=== PATIENT | female | born 1935 | race Caucasian/White ===

== ENCOUNTER 2017-05-15 10:14 | Outpatient (CLI) | payer MEDICARE, BC ==
--- NOTE | 2017-05-15 14:27 | RAD ---
RADIOGRAPH CHEST 2 VIEWS: Date: 05/15/17 Time: 1023 hours HISTORY: 81-year-old female with dyspnea. FINDINGS: There is hyperinflation of the lungs, consistent with COPD. The thoracic aorta is tortuous and ectati c. There is no evidence of air space density, pneumothorax, or pulmonary edema. There is no cardiomeg cassie or pleural effusion. Levoscoliosis of lumbar spine and compensatory dextroscoliosis of thoracic s pine. No interval change overall since 10/04/16. IMPRESSION: 1. No acute cardiopulmonary findings. 2. Emphysema. 3. Ectasia of thoracic aorta. 4. S-shaped scoliosis of thoracolumbar spine. ana maría rose POS: [facility]
== END 2017-05-15 10:15 | disposition home or self-care (01) ==
LOC: RAD 10:14
PROVIDERS: ATTEND Internal Medicine Critical Care Medicine
DX: R06.00 Dyspnea, unspecified (principal); J43.9 Emphysema, unspecified; I77.810 Thoracic aortic ectasia; M41.85 Other forms of scoliosis, thoracolumbar region
CPT/HCPCS: 71020

== ENCOUNTER 2017-11-22 13:07 | Outpatient (CLI) | payer MEDICARE, BC ==
--- NOTE | 2017-11-22 14:15 | RAD ---
PA AND LATERAL CHEST XRAY: DATE: 11/22/17. HISTORY: Dyspnea. COMPARISON: 05/15/17. FINDINGS: Cardiac silhouette and pulmonary vasculature are within normal limits. There are interval linear irr egular densities again seen at each lung base unchanged from the prior exam. Peribronchial thickenin g in the right lung base is present. Chest is overall unchanged compared to the prior exam. IMPRESSION: 1. Overall stable chest with mild linear and patchy densities at each lung base which are unchanged. In addition, there is bronchiectasis at the right lung base. Findings may be related to chronic in flammatory or infectious process. 2. No new focal area of consolidation or pleural fluid is seen. POS: [facility]
== END 2017-11-22 13:08 | disposition home or self-care (01) ==
LOC: RAD 13:07
PROVIDERS: ATTEND Internal Medicine Critical Care Medicine
DX: R06.00 Dyspnea, unspecified (principal); J47.9 Bronchiectasis, uncomplicated; J98.4 Other disorders of lung
CPT/HCPCS: 71046

== ENCOUNTER 2020-01-01 10:24 | Outpatient (CLI) | payer MEDICARE, BC ==
--- NOTE | 2020-01-01 11:37 | RAD ---
CHEST 2 VIEWS: Date: 01/01/2020 HISTORY: Dyspnea. COMPARISON: 01/02/2019. FINDINGS: Fairly prominent increased linear and interstitial markings and some reticulonodular parenchymal ellison ges bilaterally, evidence for overall stable chronic lung change. Prominent atherosclerotic ectatic c hanges of the aorta. Heart size is within normal limits. There is some evidence for some possible bro nchiectasis and peribronchial thickening in the bases. IMPRESSION: Fairly extensive but overall stable bilateral chronic lung changes. Extensive atherosclerotic ectatic changes of the aorta. No evidence for significant new process. POS: [facility]
== END 2020-01-01 10:25 | disposition home or self-care (01) ==
LOC: BICRAD 10:24
PROVIDERS: ATTEND Internal Medicine Critical Care Medicine
DX: R06.00 Dyspnea, unspecified (principal); I70.0 Atherosclerosis of aorta; I77.819 Aortic ectasia, unspecified site
CPT/HCPCS: 71046

== ENCOUNTER 2025-04-10 10:03 | Outpatient (CLI) | payer MEDICARE | END 2025-04-10 10:04 | disposition home or self-care (01) | LOC: BICMAMMO 10:03 | PROVIDERS: ATTEND Family Medicine | DX: M81.0 Age-related osteoporosis without current pathological fracture (principal) | CPT/HCPCS: 77080 ==

== ENCOUNTER 2025-04-11 11:08 | Day surgery (SDC) | payer MEDICARE ==
[2025-04-03 10:24] VITALS: BMI 21.6
[2025-04-11] MEDS ORDERED: Tropicamide 1% 15 ML BOTTLE ONE (11:24)
== END 2025-04-11 13:10 | disposition home or self-care (01) ==
LOC: SDC 11:08
PROVIDERS: ATTEND Ophthalmology
PROC: 085K3ZZ Destruction of Left Lens, Percutaneous Approach (ICD-10-PCS; principal; 2025-04-11)
PROC: 085J3ZZ Destruction of Right Lens, Percutaneous Approach (ICD-10-PCS; 2025-04-11)
DX: H26.493 Other secondary cataract, bilateral (principal); Z88.5 Allergy status to narcotic agent; I10 Essential (primary) hypertension; E11.9 Type 2 diabetes mellitus without complications